=== PATIENT | male | born 1990 | race African-American/Black ===

== ENCOUNTER 2020-10-20 22:29 | Inpatient (IN) | payer MEDICAID, OTHER ==
[~2020-10-20] VITALS: Ht 182.9 cm; Wt 153.3 kg
[2020-10-21 02:57] LABS: Eosinophils # (auto) 0.2 10 ^3/uL (0-0.8); Eosinophils % (auto) 2.7 % (0.0-7.0); Hematocrit 45.4 % (41.0-53.0); Monocytes # (auto) 0.7 10 ^3/uL (0-1.3); Neutrophils % (auto) 60.2 % (37.0-80.0)
[2020-10-21 02:59] LABS: Basophils # (auto) 0.1 10 ^3/uL (0-0.2); Basophils % (auto) 0.6 % (0.0-2.0); Hemoglobin 14.6 g/dL (13.5-17.5); Lymphocytes # (auto) 2.4 10 ^3/uL (0.4-5.4); Lymphocytes % (auto) 27.9 % (10.0-50.0); Mean Corpuscular Hgb Conc. 32.1 g/dL (32.0-36.0); Mean Corpuscular Volume 84.1 fL (80.0-100.0); Monocytes % (auto) 8.6 % (0.0-12.0); Neutrophils # (auto) 5.1 10 ^3/uL (1.6-8.6); Platelet Count (auto) 290 10^3/uL (140-450); Red Cell Distribution Width 14.5 % (11.8-14.3); White Blood Cell 8.5 10^3/uL (4.4-10.8)
[2020-10-21 03:13] LABS: Calcium 9.1 mg/dL (8.5-10.1); Chloride 108 mmol/L (98-107); Potassium 4.3 mmol/L (3.5-5.1); Sodium 140 mmol/L (136-145)
[2020-10-21 03:16] LABS: Alanine Aminotransferase 56 U/L (16-61); Albumin 3.7 g/dL (3.4-5.0); Amylase 45 U/L (25-115); Anion Gap 3 (5-15); Aspartate Aminotransferase 25 U/L (15-37); BUN/Creatinine Ratio 16.7; Blood Urea Nitrogen 15 mg/dL (7-18); Carbon Dioxide 29 mmol/L (21-32); GFR African American 128 mL/min; GFR Non-African American 106 mL/min; Glucose 93 mg/dL (74-106); Lipase 79 U/L (73-393); Magnesium 2.2 mg/dL (1.6-2.6)
[2020-10-21 03:18] LABS: INR 0.93 (0.9-1.15); Partial Thromboplastin Time 25.6 sec (23.0-31.2)
[2020-10-21 03:21] LABS: Alkaline Phosphatase 70 U/L (45-117); Bilirubin, Total 0.3 mg/dL (0.2-1.0); Total Protein 7.8 g/dL (6.4-8.2)
[2020-10-21] MEDS ORDERED: SODIUM CHLORIDE 0.9% 1,000 ML IV ONE (04:30)
[2020-10-21] MEDS ORDERED: CIPROFLOXACIN 400MG/200ML 200 ML IV ONE (04:30)
[2020-10-21] MEDS ORDERED: metroNIDAZOLE 500MG/100ML 100 ML IV ONE (04:30)
[2020-10-21] MEDS ORDERED: ONDANSETRON HCL 4 MG/2 ML VIAL IV ONE (04:30)
[2020-10-21] MEDS: MORPHINE SULFATE 4 MG/ML SYR/VIAL IV PRN ×2 (05:00→13:46)
[2020-10-21] MEDS: ONDANSETRON HCL 4 MG/2 ML VIAL IV PRN ×2 (05:00→13:46)
[2020-10-21] MEDS ORDERED: MORPHINE SULF INJ 2 MG/ML SYRINGE 1ML IV PRN (05:15)
[2020-10-21] MEDS ORDERED: NITROGLYCERIN 0.4 MG SL TAB SL PRN (05:15)
[2020-10-21] MEDS ORDERED: ACETAMINOPHEN 325 MG TAB PO PRN (05:15)
[2020-10-21] MEDS: metroNIDAZOLE 500MG/100ML 100 ML IV SCH ×3 (06:00→22:45)
[2020-10-21 09:39] LABS: Basophils # (auto) 0 10 ^3/uL (0-0.2); Eosinophils # (auto) 0.1 10 ^3/uL (0-0.8); Hemoglobin 14.3 g/dL (13.5-17.5); Lymphocytes # (auto) 1.8 10 ^3/uL (0.4-5.4); Monocytes # (auto) 0.6 10 ^3/uL (0-1.3)
[2020-10-21 09:40] LABS: Basophils % (auto) 0.4 % (0.0-2.0); Hematocrit 44.8 % (41.0-53.0); Lymphocytes % (auto) 26.1 % (10.0-50.0); Mean Corpuscular Hemoglobin 26.7 pg (28.0-32.0); Mean Corpuscular Hgb Conc. 31.9 g/dL (32.0-36.0); Mean Corpuscular Volume 83.8 fL (80.0-100.0); Monocytes % (auto) 8.1 % (0.0-12.0); Neutrophils # (auto) 4.3 10 ^3/uL (1.6-8.6); Neutrophils % (auto) 63.4 % (37.0-80.0); Nucleated Red Blood Cells % 0.1 %; Platelet Count (auto) 283 10^3/uL (140-450); Red Blood Cells 5.35 10^6/uL (4.5-5.90); Red Cell Distribution Width 14.5 % (11.8-14.3); White Blood Cell 6.8 10^3/uL (4.4-10.8)
[2020-10-21 09:48] LABS: Albumin 3.7 g/dL (3.4-5.0); Potassium 4.2 mmol/L (3.5-5.1)
[2020-10-21 09:54] LABS: BUN/Creatinine Ratio 14.1; Bilirubin, Total 0.5 mg/dL (0.2-1.0); Total Protein 7.6 g/dL (6.4-8.2)
[2020-10-21] MEDS: ENOXAPARIN SOD 40 MG/0.4 ML SYRINGE SC SCH (13:45)
[2020-10-21] MEDS: D5W/SOD CHL 0.45% 1,000 ML IV SCH ×2 (13:45→18:55)
[2020-10-21] MEDS: PANTOPRAZOLE 40 MG/10 ML VIAL INJ IV SCH (13:45)
[2020-10-21] MEDS ORDERED: DEXTROSE (50%) 50ML SYRG IV PRN (15:00)
[2020-10-21] MEDS: InsuLIN REG 1unit/0.01ml Soln (100units/ml) SC SCH ×2 (17:00→21:41)
[2020-10-21] MEDS: ACCU-CHEK COMFORT CURVE STRIP VI SCH ×2 (17:08→21:40)
[2020-10-21] MEDS: HYDROcodone-ACET 5/325MG TAB PO PRN ×2 (17:09→22:30)
[2020-10-22] MEDS: metroNIDAZOLE 500MG/100ML 100 ML IV SCH ×3 (06:14→22:56)
[2020-10-22] MEDS: ACCU-CHEK COMFORT CURVE STRIP VI SCH ×4 (06:29→22:56)
[2020-10-22] MEDS: InsuLIN REG 1unit/0.01ml Soln (100units/ml) SC SCH ×4 (06:29→22:00)
[2020-10-22] MEDS: MORPHINE SULFATE 4 MG/ML SYR/VIAL IV PRN ×4 (06:34→21:29)
[2020-10-22 07:14] LABS: Basophils # (auto) 0 10 ^3/uL (0-0.2); Basophils % (auto) 0.4 % (0.0-2.0); Eosinophils # (auto) 0.1 10 ^3/uL (0-0.8); Hemoglobin 14.2 g/dL (13.5-17.5); Mean Corpuscular Volume 83.5 fL (80.0-100.0); Monocytes # (auto) 0.5 10 ^3/uL (0-1.3); White Blood Cell 6.1 10^3/uL (4.4-10.8)
[2020-10-22 07:17] LABS: Eosinophils % (auto) 2.3 % (0.0-7.0); Hematocrit 44.1 % (41.0-53.0); Lymphocytes # (auto) 1.6 10 ^3/uL (0.4-5.4); Lymphocytes % (auto) 25.4 % (10.0-50.0); Mean Corpuscular Hemoglobin 26.8 pg (28.0-32.0); Mean Corpuscular Hgb Conc. 32.1 g/dL (32.0-36.0); Monocytes % (auto) 8.8 % (0.0-12.0); Neutrophils # (auto) 3.8 10 ^3/uL (1.6-8.6); Neutrophils % (auto) 63.1 % (37.0-80.0); Nucleated Red Blood Cells % 0.2 %; Platelet Count (auto) 268 10^3/uL (140-450); Red Blood Cells 5.28 10^6/uL (4.5-5.90); Red Cell Distribution Width 14.2 % (11.8-14.3)
[2020-10-22 07:30] LABS: Potassium 4.4 mmol/L (3.5-5.1)
[2020-10-22 07:39] LABS: Albumin 3.3 g/dL (3.4-5.0); Bilirubin, Total 0.6 mg/dL (0.2-1.0); Calcium 8.9 mg/dL (8.5-10.1)
[2020-10-22] MEDS: D5W/SOD CHL 0.45% 1,000 ML IV SCH ×2 (08:04→22:56)
[2020-10-22] MEDS: PANTOPRAZOLE 40 MG/10 ML VIAL INJ IV SCH (10:00)
[2020-10-22] MEDS: ENOXAPARIN SOD 40 MG/0.4 ML SYRINGE SC SCH (10:00)
[2020-10-22] MEDS: ONDANSETRON HCL 4 MG/2 ML VIAL IV PRN ×2 (10:33→14:18)
--- NOTE | 2020-10-22 19:00 | NUR ---
OPENING NOTE- NOC SHIFT ASSUMED PATIENT CARE. PATIENT IS IN BED, COMFORTABLE. NO SIGNS OF DISTRESS OR SOB. WILL CONTINUE TO MONITOR Q1H AND PRN. CALL LIGHT WITHIN REACH.
[2020-10-22 20:00] VITALS: BP 129/66
--- NOTE | 2020-10-22 20:00 | NUR ---
WILL RN, TO ASSESS PATIENT WHILE THIS RN IS TRANSFERRING A DIFFERENT PATIENT OUT OF UNIT.
--- NOTE | 2020-10-22 21:15 | NUR ---
PATIENT UPSET THAT HE IS NPO FOR FOR PROCEDURE. PROVIDED EDUCATION REGARDING IMPORTANCE OF NPO PRIOR TO PROCEDURE. PATIENT VERBALIZES UNDERSTANDING AND AGREES TO BE COMPLIANT.
[2020-10-22 22:00] VITALS: BP 129/66
--- NOTE | 2020-10-22 22:10 | NUR ---
ROUNDS PATIENT RESTING IN BED. NO S/SX OF DISTRESS.
[2020-10-23 05:00] VITALS: BP 130/67
--- NOTE | 2020-10-23 05:50 | NUR ---
IV insertion IV access obtained, via clean sterile technique by inserting 22 gauge catheter at LEFT FA after 1 attempt(s). IV secured properly. No trauma to site. Patient tolerated well. NOTE:
--- NOTE | 2020-10-23 05:50 | NUR ---
IV removal IV AT LEFT WRIST DC'd with clean sterile technique, catheter fully intact. Pressure dressing applied to site. Patient tolerated well.
[2020-10-23] MEDS: metroNIDAZOLE 500MG/100ML 100 ML IV SCH ×3 (05:54→23:22)
[2020-10-23] MEDS: MORPHINE SULFATE 4 MG/ML SYR/VIAL IV PRN ×4 (06:06→23:34)
[2020-10-23] MEDS: InsuLIN REG 1unit/0.01ml Soln (100units/ml) SC SCH ×4 (06:07→22:00)
[2020-10-23] MEDS: ACCU-CHEK COMFORT CURVE STRIP VI SCH ×4 (06:07→23:22)
[2020-10-23 06:20] LABS: Basophils # (auto) 0 10 ^3/uL (0-0.2); Basophils % (auto) 0.4 % (0.0-2.0); Eosinophils # (auto) 0.2 10 ^3/uL (0-0.8); Eosinophils % (auto) 2.6 % (0.0-7.0); Hematocrit 43.5 % (41.0-53.0); Hemoglobin 14.2 g/dL (13.5-17.5); Lymphocytes # (auto) 1.7 10 ^3/uL (0.4-5.4); Lymphocytes % (auto) 24.8 % (10.0-50.0); Mean Corpuscular Hgb Conc. 32.7 g/dL (32.0-36.0); Mean Corpuscular Volume 82.5 fL (80.0-100.0); Monocytes # (auto) 0.6 10 ^3/uL (0-1.3); Monocytes % (auto) 8.9 % (0.0-12.0); Neutrophils # (auto) 4.4 10 ^3/uL (1.6-8.6); Neutrophils % (auto) 63.3 % (37.0-80.0); Nucleated Red Blood Cells % 0.1 %; Platelet Count (auto) 275 10^3/uL (140-450); Red Blood Cells 5.27 10^6/uL (4.5-5.90); Red Cell Distribution Width 14.1 % (11.8-14.3); White Blood Cell 6.9 10^3/uL (4.4-10.8)
[2020-10-23 06:30] LABS: Calcium 8.6 mg/dL (8.5-10.1); Potassium 3.8 mmol/L (3.5-5.1)
[2020-10-23 06:36] LABS: Albumin 3.3 g/dL (3.4-5.0); BUN/Creatinine Ratio 16.7; Bilirubin, Total 0.5 mg/dL (0.2-1.0); Total Protein 6.9 g/dL (6.4-8.2)
--- NOTE | 2020-10-23 07:15 | NUR ---
ENDORSED PATIENT CARE TO DAY SHIFT NURSE. PATIENT IS COMFORTABLE IN BED. PATIENT IS NPO.
[2020-10-23 08:00] VITALS: BP 150/70
[2020-10-23 09:00] VITALS: BP 150/70
[2020-10-23] MEDS: PANTOPRAZOLE 40 MG/10 ML VIAL INJ IV SCH (09:59)
[2020-10-23] MEDS: ENOXAPARIN SOD 40 MG/0.4 ML SYRINGE SC SCH (09:59)
[2020-10-23] MEDS: D5W/SOD CHL 0.45% 1,000 ML IV SCH ×2 (10:00→23:22)
[2020-10-23 13:00] VITALS: BP 102/63
--- NOTE | 2020-10-23 14:10 | NUR ---
Nutrition Assessment Notes please see attached link for complete assessment Est energy needs ABW 117 [id number] kcal (17-20kcal/kg ABW), Est protein needs 117-128g (1-1.1g/kg ABW). Will monitor and reassess prn. Addendum: 10/23/20 at [address] Amended: Links added.
[2020-10-23] MEDS ORDERED: ceFAZolin 1GM/50ML 100 ML IV ONE (16:21)
[2020-10-23] MEDS ORDERED: fentaNYL CITRATE 10 ML ONE (17:03)
[2020-10-23] MEDS ORDERED: ROCURONIUM 10MG/ML 10ML VIAL IV ONE ×2 (17:04→17:12)
[2020-10-23] MEDS ORDERED: SUCCINYLCHOLINE CHLORIDE 20 MG/ML 10ML VIAL IV ONE (17:04)
[2020-10-23] MEDS ORDERED: PROPOFOL 10 MG/ML 20 ML IV ONE (17:05)
[2020-10-23] MEDS ORDERED: hydrALAZINE HCL 20 MG/ML VL IV PRN (18:30)
[2020-10-23] MEDS ORDERED: ONDANSETRON HCL 4 MG/2 ML VIAL IV PRN (18:30)
[2020-10-23] MEDS: MORPHINE SULF INJ 2 MG/ML SYRINGE 1ML IV PRN ×2 (18:52→19:02)
--- NOTE | 2020-10-23 19:25 | NUR ---
OPENING NOTE- NOC SHIFT ASSUMED PATIENT CARE. PATIENT RETURNED FROM OR PROCEDURE. PATIENT IS ALERT AND ORIENTED X4 AND ANSWERS IN COMPLETE SENTENCES. PATIENT HAS THREE ABDOMINAL INCISIONS COVERED WITH DRESSING. DRESSING IS SECURE. PATIENT IS IN BED, BED IS LOCKED AT LOWEST POSITION, BED RAIL UP X2 AND HEAD OF BED IS UP >30 DEGREES. BEDSIDE TABLE WITHIN REACH, CALL LIGHT WITHIN REACH. DISCUSSED POC WITH PATIENT AND INSTRUCTED PATIENT TO CALL PRN; PATIENT VERBALIZED UNDERSTANDING. WILL CONTINUE TO MONITOR Q1H AND PRN.
[2020-10-23] MEDS: HYDROcodone-ACET 5/325MG TAB PO PRN (19:55)
[2020-10-23 22:00] VITALS: BP 103/62
--- NOTE | 2020-10-23 22:00 | NUR ---
PATIENT UP TO BATHROOM WALKING INDEPENDENTLY. PATIENT TOLERATED WELL.
[2020-10-24] MEDS: MORPHINE SULFATE 4 MG/ML SYR/VIAL IV PRN ×4 (03:33→20:42)
[2020-10-24 05:00] VITALS: BP 112/70
[2020-10-24] MEDS: metroNIDAZOLE 500MG/100ML 100 ML IV SCH (07:00)
[2020-10-24] MEDS: InsuLIN REG 1unit/0.01ml Soln (100units/ml) SC SCH ×4 (07:00→21:00)
[2020-10-24] MEDS: HYDROcodone-ACET 5/325MG TAB PO PRN ×3 (07:01→23:22)
[2020-10-24] MEDS: ACCU-CHEK COMFORT CURVE STRIP VI SCH ×4 (07:01→20:56)
--- NOTE | 2020-10-24 07:45 | NUR ---
RECEIVED PATIENT ALERT AND ORIENTED X4, NOT IN DISTRESS, CLEAR LS IN BILATERAL LUNG LOBES, RR=18, DEEP BREATHING AND COUGHING ENCOURAGED, DEMONSTRATED AND VERBALIZED UNDERSTANDING, DENIED CHEST PAIN AND SOB, HEART R=68, SURGICAL INCISION X2 COVERED WITH INTACT TEGA DREAM DRESSING, ABDOMEN SOFT AND ROUND WITH ACTIVE BS , NO PASSING GAS NOTED REPORTED, SKIN INTACT WARM TO TOUCH, RADIAL AND PEDAL PULSES PALPABLE, C/O ABDOMINAL PAIN L=8/10, NORCO PO PRN WAS GIVEN AT 0701 BY THE NUCLEAR REACTOR OPERATOR RN REPORTED, RESTING ON BED, HEAD OF BED ELEVATED, BED ON LOW POSITION, RAILS UP X2, CALL LIGHT ON REACH, WILL CONTINUE MONITORING.
[2020-10-24] MEDS: ONDANSETRON HCL 4 MG/2 ML VIAL IV PRN ×3 (08:07→20:41)
[2020-10-24 08:20] LABS: Basophils # (auto) 0 10 ^3/uL (0-0.2); Basophils % (auto) 0.4 % (0.0-2.0); Eosinophils # (auto) 0.1 10 ^3/uL (0-0.8); Lymphocytes # (auto) 1.5 10 ^3/uL (0.4-5.4); Monocytes # (auto) 0.9 10 ^3/uL (0-1.3)
[2020-10-24 08:22] LABS: Eosinophils % (auto) 1.3 % (0.0-7.0); Hematocrit 43.8 % (41.0-53.0); Hemoglobin 14.3 g/dL (13.5-17.5); Lymphocytes % (auto) 15.7 % (10.0-50.0); Mean Corpuscular Hemoglobin 27.3 pg (28.0-32.0); Mean Corpuscular Hgb Conc. 32.6 g/dL (32.0-36.0); Mean Corpuscular Volume 83.8 fL (80.0-100.0); Monocytes % (auto) 9.4 % (0.0-12.0); Neutrophils % (auto) 73.2 % (37.0-80.0); Platelet Count (auto) 288 10^3/uL (140-450); Red Blood Cells 5.22 10^6/uL (4.5-5.90); Red Cell Distribution Width 13.9 % (11.8-14.3); White Blood Cell 9.6 10^3/uL (4.4-10.8)
--- NOTE | 2020-10-24 08:28 | NUR ---
TOLERATED CLEAR LIQUID BREAKFAST, C/O ABDOMINAL PAIN L=10/10, MORPHINE IV PRN ORDERED, PAIN SUBSIDED TO L=5/10, OUT OF BED ENCOURAGED, AMBULATED AROUND THE UNIT X4, BACK TO THE BED AND RESTING AT THIS MOMENT, WILL CONTINUE MONITORING.
[2020-10-24 08:39] LABS: Albumin 3.1 g/dL (3.4-5.0); Calcium 8.8 mg/dL (8.5-10.1)
[2020-10-24 08:44] LABS: BUN/Creatinine Ratio 9.3; Bilirubin, Total 0.6 mg/dL (0.2-1.0); Total Protein 6.8 g/dL (6.4-8.2)
[2020-10-24 09:00] VITALS: BP 140/73
[2020-10-24] MEDS: PANTOPRAZOLE 40 MG/10 ML VIAL INJ IV SCH (10:00)
[2020-10-24] MEDS: ENOXAPARIN SOD 40 MG/0.4 ML SYRINGE SC SCH (10:01)
[2020-10-24] MEDS ORDERED: cefTRIAXone 1GM/50ML D5W 50 ML IV ONE (11:45)
[2020-10-24 12:34] VITALS: BP 140/85
[2020-10-24] MEDS: metroNIDAZOLE 500 MG TAB PO SCH ×2 (13:37→20:56)
--- NOTE | 2020-10-24 15:18 | NUR ---
INFILTRATED LT. FA IV SITE NOTED AND D/C, NEW IV SITE 20G INSERTED ON RT LOWER ARM, TOLERATED WELL, OUT OF BED, AMBULATED AROUND THE UNIT AND BACK, TOLERATED WELL, RESTING ON BED AND RESTING AT THIS MOMENT, WILL CONTINUE MONITORING.
[2020-10-24 16:42] VITALS: BP 101/66
[2020-10-24] MEDS: DOCUSATE SOD 100 MG CAP PO PRN (18:30)
--- NOTE | 2020-10-24 19:32 | NUR ---
NOT IN DISTRESS, RESTING ON BED, REPORT WAS GIVEN TO THE ENTERPRISE SECURITY ARCHITECT RN.
[2020-10-25 05:17] VITALS: BP 115/63
[2020-10-25] MEDS: metroNIDAZOLE 500 MG TAB PO SCH ×2 (06:00→14:29)
[2020-10-25] MEDS: InsuLIN REG 1unit/0.01ml Soln (100units/ml) SC SCH ×2 (07:00→11:30)
--- NOTE | 2020-10-25 07:35 | NUR ---
Opening Shift Note Assumed care of patient, awake and alert. No S/S of distress/SOB or pain. Instructed on POC and to call for assist PRN, will continue to monitor for changes Q1hr and PRN. Bed locked in lowest position with two side rails up and call light in reach.
[2020-10-25] MEDS: ACCU-CHEK COMFORT CURVE STRIP VI SCH ×2 (07:42→11:30)
[2020-10-25 08:00] VITALS: BP 131/98
[2020-10-25 09:00] VITALS: BP 131/98
--- NOTE | 2020-10-25 09:22 | NUR ---
PATIENT TOLERATING DIET WELL HAS NOT HAD BM OR PASSING GAS.
[2020-10-25] MEDS: DOCUSATE SOD 100 MG CAP PO PRN (09:25)
[2020-10-25] MEDS: cefTRIAXone 1GM/50ML D5W 50 ML IV SCH ×2 (09:26→10:25)
[2020-10-25] MEDS: ENOXAPARIN SOD 40 MG/0.4 ML SYRINGE SC SCH (10:00)
[2020-10-25] MEDS: PANTOPRAZOLE 40 MG/10 ML VIAL INJ IV SCH (10:24)
--- NOTE | 2020-10-25 12:24 | NUR ---
Nutrition Followup Note Wt 153.3kg Pt was alert and oriented at time of rounds. Pt is s/p open cholecystectomy with diet advanced to [facility] Soft. Pt consumed 100% of po intake of full liquid diet prior to advancement. Pt reports no GI issues, pt const last BM 3 days ago. Est energy needs ABW 117 [id number] kcal (17-20kcal/kg ABW), Est protein needs 117-128g (1-1.1g/kg ABW). Will monitor and reassess prn. Labs; Alb 3.1L BM: None recorded, constipated per pt Skin: BS 19 low risk, full details in career and transition teacher note. PES: Altered nutrition related lab values r/t current chronic medical condition aeb mild hypoalb Decreased nutrient needs r/t adiposity aeb pt`s high BMI of 45.7 kgm2 and pt non compliant Comments 1) refer to CDE on DC 2) advance diet as medically feasible 3) continue current plan fo care Expected Outcomes/Goals: pt to consume >75% of po intake F/u mod 3-5 days
[2020-10-25] MEDS ORDERED: DOCU100C8 PO (12:58)
[2020-10-25] MEDS ORDERED: CEPH-37 PO (12:58)
[2020-10-25] MEDS ORDERED: IBUP400T21 PO (12:59)
[2020-10-25 13:00] VITALS: BP 133/67
[2020-10-25 14:29] VITALS: BP 133/67
--- NOTE | 2020-10-25 14:55 | NUR ---
PATIENT TOLERATED LUNCH WELL.
--- NOTE | 2020-10-25 15:19 | NUR ---
Discharge instructions given as ordered. Encourage to follow up with PMD as instructed. All questions and concerns addressed. Patient verbalized understanding. Medication reconciliation form completed and copy given to patient. No Home medications held in Pharmacy and none to be returned to patient, and no needed vaccines given. IV removed with catheter intact, pressure dressing applied. Patient ambulated to vehicle via wheelchair with all personal belongings, accompanied by staff and family member. No distress noted at time of departure.
== END 2020-10-25 15:12 | disposition home or self-care (01) | DRG 263 ==
LOC: ER 22:32 → TELE 22:33 → TELE-WESTW 10-22 17:53 → WEST WING 10-23 01:20
PROVIDERS: ADMIT Nurse Practitioner Family; ATTEND Internal Medicine Nephrology
PROC: 0FT44ZZ Resection of Gallbladder, Percutaneous Endoscopic Approach (ICD-10-PCS; principal; 2020-10-23 16:56)
DX: K80.12 Calculus of gallbladder with acute and chronic cholecystitis without obstruction (principal); K44.9 Diaphragmatic hernia without obstruction or gangrene; K76.0 Fatty (change of) liver, not elsewhere classified; E11.9 Type 2 diabetes mellitus without complications; E66.01 Morbid (severe) obesity due to excess calories; Z68.42 Body mass index [BMI] 45.0-49.9, adult; Z20.828 Contact with and (suspected) exposure to other viral communicable diseases; R16.0 Hepatomegaly, not elsewhere classified; R74.01 Elevation of levels of liver transaminase levels
CPT/HCPCS: 36415; 74176; 76705; 78226; 80053; 82150; 82962; 83036; 83605; 83690; 83735; 84443; 84484; 85025; 85610; 85730; 86850; 86900; 86901; 87040; 87426; 96365; C9113; G0378; J0330; J0690; J0696; J2405; J2704; J3490